=== PATIENT | male | born 1985 | race Caucasian/White ===

== ENCOUNTER 2017-05-14 12:25 | Emergency (ER) | payer BC ==
[2017-05-14 12:40] VITALS: BP 120/74
[2017-05-14 13:13] LABS: CHLORIDE,CL 105 mmol/L (98-115); SODIUM,NA 139 mmol/L (136-145)
--- NOTE | 2017-05-14 13:34 | EDM.PDOC ---
ED HPI GENERAL MEDICAL PROBLEM - General Chief Complaint: Abdominal Pain Time Seen by Provider: 05/14/17 13:06 Source of Information: Reports: Patient, Family () History Limitations: Reports: No Limitations - History of Present Illness INITIAL COMMENTS - FREE TEXT/NARRATIVE: Patient presents with a painful umbilical hernia. This has been present for a couple years but only tender for two months. It has been increasing in intensity and is now 8-9/10. Three days ago he saw his PCP, Dr. Khan, who scheduled him for a surgical consult this Sunday at [facility]. However this is getting more uncomfortable and intolerable and he doesn't think he can wait for that. He hasn't taken any pain medication but did have marijuana an hour ago. He typically passes stool every three days with no change recently. Middle Abdominal Pain Score (Numeric/FACES): 9 - Related Data Allergies Allergy/AdvReac Type Severity Reaction Status Date / Time No Known Drug Allergies Allergy Unknown Cannot Verified 05/14/17 13:47 Remember cat dander Allergy Cannot Verified 05/14/17 12:32 Remember Home Meds: Home Meds Albuterol Sulfate [Albuterol Sulfate HFA] 2 puff INH ASDIRECTED 04/04/14 [ History] Albuterol [Proventil] 1 unit INH QID PRN 05/02/14 [History] Past Medical History HEENT History: Reports: None Respiratory History: Reports: Asthma Neurological History: Reports: Headaches, Chronic, Migraines Psychiatric History: Reports: Anxiety - Infectious Disease History Infectious Disease History: Reports: Chicken Pox - Past Surgical History HEENT Surgical History: Reports: Tonsillectomy Respiratory Surgical History: Reports: None Neurological Surgical History: Reports: None Social & Family History - Tobacco Use Smoking Status *Q: Current Every Day Smoker Years of Tobacco use: 8 Packs/Tins Daily: 1 Used Tobacco, but Quit: No Second Hand Smoke Exposure: Yes - Caffeine Use Caffeine Use: Reports: Energy Drinks, Soda - Alcohol Use Days Per Week of Alcohol Use: 0 - Recreational Drug Use Recreational Drug Use: Yes Drug Use in Last 12 Months: Yes Recreational Drug Type: Reports: Marijuana/Hashish Recreational Drug Use Frequency: Daily ED ROS GENERAL - Review of Systems Review Of Systems: See Below Constitutional: Denies: Fever, Chills, Decreased Appetite HEENT: Reports: No Symptoms Respiratory: Denies: Shortness of Breath, Cough Cardiovascular: Denies: Chest Pain, Syncope GI/Abdominal: Reports: Abdominal Pain, Nausea. Denies: Constipation, Diarrhea, Stool Incontinence, Vomiting : Denies: Dysuria, Flank Pain Musculoskeletal: Reports: No Symptoms Skin: Denies: Cyanosis, Jaundice, Mottled, Pallor, Diaphoresis Neurological: Denies: Confusion, Dizziness, Seizure, Syncope Psychiatric: Denies: Agitation, Anxiety, Confusion ED EXAM, GI/ABD - Physical Exam Exam: See Below Exam Limited By: No Limitations General Appearance: Alert, WD/WN, No Apparent Distress Eyes: Bilateral: Normal Appearance, EOMI Ears: Normal External Exam, Hearing Grossly Normal Nose: Normal Inspection, No Blood Throat/Mouth: Normal Inspection, Normal Lips, Normal Voice, No Airway Compromise Head: Atraumatic, Normocephalic Neck: Normal Inspection, Full Range of Motion Respiratory/Chest: No Respiratory Distress, Lungs Clear, Normal Breath Sounds, No Accessory Muscle Use Cardiovascular: Regular Rate, Rhythm, No Murmur GI/Abdominal Exam: Normal Bowel Sounds, Soft, No Organomegaly, No Distention, No Abnormal Bruit, Hernia (one-inch superior to umbilicus there is a 2-3 cm protruding mass consistent with hernia to palpation. It is not visible, just palpable. No erythema or swelling present. I attempted to reduce it unsuccessfully, although it is fairly mobile and fluctuant.) Back Exam: No: CVA Tenderness (L), CVA Tenderness (R) Extremities: Normal Inspection, Normal Range of Motion Neurological: Alert, Oriented, Normal Cognition, No Motor/Sensory Deficits Psychiatric: Normal Affect, Normal Mood, Anxious Skin Exam: Warm, Dry, Intact, Normal Color, No Rash Course - Vital Signs Last Recorded V/S: Last Vital Signs Temp 99 F 05/14/17 12:28 Pulse 82 05/14/17 12:28 Resp 16 05/14/17 12:28 BP 120/74 05/14/17 12:28 Pulse Ox 98 05/14/17 12:28 - Orders/Labs/Meds Labs: Laboratory Tests 05/14/17 05/14/17 Range/Units 12:45 12:45 WBC 8.5 (5.0-10.0) 10^3/uL RBC 4.85 (4.50-6.00) 10^6/uL Hgb 14.3 (13.0-17.0) g/dL Hct 45.9 (40.0-52.0) % MCV 94.7 H (82.0-92.0) fL MCH 29.4 (27.0-31.0) pg MCHC 31.1 L (32.0-36.0) g/dL RDW 13.3 (11.5-14.5) % Plt Count 252 (150-300) 10^3/uL MPV 8.6 (7.4-10.4) fL Neut % (Auto) 75.4 H (50.0-70.0) % Lymph % (Auto) 14.8 L (20.0-40.0) % [place] % (Auto) 5.3 (2.0-8.0) % Eos % (Auto) 3.2 H (1.0-3.0) % Baso % (Auto) 1.3 H (0.0-1.0) % Neut # (Auto) 6.3 (2.5-7.0) 10^3/uL Lymph # (Auto) 1.3 (1.0-4.0) 10^3/uL [place] # (Auto) 0.5 (0.1-0.8) 10^3/uL Eos # (Auto) 0.3 (0.1-0.3) 10^3/uL Baso # (Auto) 0.1 (0.0-0.1) 10^3/uL Sodium 139 (136-145) mmol/L Potassium 4.8 (3.3-5.3) mmol/L Chloride 105 (98-115) mmol/L Carbon Dioxide 25.5 (21.0-32.0) mmol/L BUN 13 (6-25) mg/dL Creatinine 0.94 (0.51-1.17) mg/dL Est Cr Clr Drug Dosing 121.64 mL/min Estimated GFR (MDRD) > 60 mL/min Glucose 115 H (70-110) mg/dL Calcium 9.1 (8.7-10.3) mg/dL Total Bilirubin 0.2 (0.2-1.0) mg/dL AST 17 (15-37) U/L ALT 27 (12-78) U/L Alkaline Phosphatase 61 (46-116) IU/L C-Reactive Protein < 0.2 (0.0-0.9) mg/dL Total Protein 7.7 (6.4-8.2) g/dL Albumin 4.33 (3.00-4.80) g/dL - Re-Assessments/Exams Free Text/Narrative Re-Assessment/Exam: 05/14/17 13:35 Labs are okay. Patient would like to get this taken care of today if at all possible with the increasing pain and discomfort. I discussed case with Dr. Silva, surgeon at [facility], who feels this is most likely a fat-filled hernia sac and not needing emergent surgery. However he is okay with having the patient come to ER for CT and surgical consult, although he no guarantee of surgery today. Discussed this with patient and his and they will drive to [place] for this and patient doesn't feel he will need pain control for the trip. I instructed him to remain NPO until seen by doctor in [place]. Patient discharged in stable condition to travel by private vehicle, driving, to [facility] ER. Departure - Departure Time of Disposition: 13:29 Disposition: DC/Tfer to Acute Hospital 02 Condition: Good Clinical Impression: Supraumbilical hernia - Discharge Information Referrals: Erin Ascencio MD [Primary Care Provider] - Additional Instructions: 1. Go to the ER at [facility] in [place]. Don't eat or drink anything before you see the doctor there in case they need to do surgery today.
== END 2017-05-14 13:45 ==
LOC: KA.ED 12:25
DX: K43.9 Ventral hernia without obstruction or gangrene (principal); F17.210 Nicotine dependence, cigarettes, uncomplicated; J45.909 Unspecified asthma, uncomplicated; Z91.048 Other nonmedicinal substance allergy status
CPT/HCPCS: 36415; 80053; 85025; 86140; 99284

== ENCOUNTER 2024-09-14 21:30 | Emergency (ER) | payer BC, MEDICAID ==
[2024-09-14] MEDS: traMADol 50 MG Tab PO ONE (22:34)
[2024-09-14 22:54] VITALS: BP 115/89; PULSE 77
== END 2024-09-14 22:50 | disposition home or self-care (01) ==
LOC: KA.ED 21:30
DX: S90.112A Contusion of left great toe without damage to nail, initial encounter (principal); J45.909 Unspecified asthma, uncomplicated; Z91.048 Other nonmedicinal substance allergy status; Z79.51 Long term (current) use of inhaled steroids; Z79.899 Other long term (current) drug therapy; W22.8XXA Striking against or struck by other objects, initial encounter
CPT/HCPCS: 73660-TA; 99283; A9270-GY